=== PATIENT | male | born 1995 | race Caucasian/White ===

== ENCOUNTER → 2017-05-15 | Outpatient (CLI) | payer OTHER ==
[~2017-05-15] MED LIST: LEVO175T PO
== END | disposition home or self-care (01) ==
LOC: C.LAB 01:05
DX: Z02.83 Encounter for blood-alcohol and blood-drug test (principal)

== ENCOUNTER 2017-07-30 10:02 | Emergency (ER) | payer OTHER ==
[~2017-07-30] VITALS: Ht 172.7 cm; Wt 61.2 kg
[2017-07-30 10:12] VITALS: TEMP 36.6; Ht 172.7 cm; Wt 61.2 kg
[2017-07-30] MEDS ORDERED: LEVO175T PO (10:20)
[2017-07-30] MEDS ORDERED: SODIUM CHLORIDE 0.9% 1000ML 1,000 ML IV STA (10:57)
[2017-07-30 11:09] LABS: BASO % 0.2 %; BASO ABS # 0.01 K/uL (0-0.2); COMPLETE YES; EOS % 4.1 %; HEMATOCRIT 45.3 % (42-52); IG% 0.2 %; LYMPH ABS # 2.16 K/uL (1.2-3.4); MEAN CELL VOLUME 83.1 fL (80-100); MEAN CORPUSCULAR HEMOGLOBIN 29.5 pg (25-34); MEAN CORPUSCULAR HGB CONC 35.5 g/dl (32-36); MEAN PLATELET VOLUME 9.9 fL (7.4-10.4); MONO % 7.5 %; PLATELET COUNT 238 K/uL (130-400); RED BLOOD COUNT 5.45 M/uL (4.7-6.1); WHITE BLOOD COUNT 6.36 K/uL (4.8-10.8)
[2017-07-30] MEDS ORDERED: OPTIRAY 320 IV PRN (11:15)
[2017-07-30 11:17] LABS: BUN/CREATININE RATIO 17.3 (10-20); CALCIUM 9.4 mg/dl (8.5-10.1); POTASSIUM 4.1 mmol/L (3.5-5.1)
[2017-07-30 12:52] LABS: URINE APPEARANCE CLEAR (CLEAR); URINE BILIRUBIN NEG (NEG); URINE COLOR YELLOW; URINE NITRITE NEG (NEG); URINE SPECIFIC GRAVITY 1.023 (1.000-1.030); UROBILINOGEN NEG (NEG); ZZUR CULT IF INDIC CLEAN CATCH NO
[2017-07-30 12:58] LABS: MANUAL MICROSCOPIC REQUIRED? NO; REVIEW REQ? NO
--- NOTE | 2017-07-30 13:57 | DIAGNOSTIC IMAGING REPORT ---
CT ABD/PELVIS IV AND ORAL CONT CLINICAL HISTORY: acute abdominal pain COMPARISON STUDY: None. TECHNIQUE: Following the IV administration of 95 mL of Optiray-320, CT scan of the abdomen and pelvis was performed from the lung bases to the proximal femurs. Images are reviewed in the axial, sagittal, and coronal planes. IV contrast was administered without complication. A dose lowering technique was utilized adhering to the principles of ALARA. CT DOSE: 334.35 mGycm FINDINGS: Lower chest: The heart is normal in size and configuration, without pericardial effusion. The lung bases and pleural spaces are clear. Liver: There is minimal periportal edema, likely secondary to aggressive hydration. There are no focal masses identified. Gallbladder: No stones are visualized. There is trace pericholecystic fluid. Spleen: Normal in size and attenuation. Pancreas: Unremarkable. Adrenal glands: Unremarkable. Kidneys: There is symmetric renal cortical enhancement. The kidneys are normal in size without hydronephrosis. Bowel: There are no transition zones indicate bowel obstruction. The appendix appears normal. There is no acute diverticulitis. Peritoneum: There is trace free pelvic fluid. There is no free air. Vasculature: The abdominal aorta is normal in course and caliber. Adenopathy: None. Pelvic viscera: The bladder, and pelvic viscera are unremarkable. Skeletal structures: No destructive osseous lesions are seen. IMPRESSION: 1. No evidence of bowel obstruction. No evidence of free air 2. Normal appendix 3. No evidence of diverticulitis 4. Trace free pelvic fluid 5. Trace pericholecystic fluid Electronically signed by: Bill Bernal M.D. 07/30/2017 1:56 PM Dictated Date/Time: 07/30/2017 1:51 PM
--- NOTE | 2017-07-30 14:03 | EMERGENCY ROOM VISIT NOTE ---
History First contact with patient: 10:28 Chief Complaint: ABDOMINAL PAIN Stated Complaint: SEVERE ABDOMINAL PAIN Nursing Triage Summary: pt reports abdominal pain located in the middle of abdomen started at 0600 and became worse at 0900, denies NVD History of Present Illness The patient is a 21 year old male who presents to the Emergency Room with complaints of periumbilical abdominal pain that started around 6 AM this morning. Patient states the pain is right around his belly button and slightly to the right. The pain has been constant, sharp and crampy, worse with movement , better with rest, currently 3/10, but at its worse has been as bad as 9/10. Patient states that he has never had pain like this before.the patient has not tried any medications for the pain. No associated symptoms of nausea, vomiting , diarrhea, constipation, blood in stool, fevers or chills, back pain, urinary symptoms, or rash. Review of Systems A complete 10 point review of systems was reviewed with the patient with pertinent positives and negatives as per history of present illness. All else were negative. Past Medical/Surgical History No significant past medical or surgical history Social History Smoking Status: Never Smoker Alcohol Use: occasionally Drug Use: none Occupation Status: [employer] student Current/Historical Medications Scheduled Levothyroxine Sodium (Synthroid), 175 MCG PO DAILY Allergies Coded Allergies: Amoxicillin (Unverified Allergy, Intermediate, PLEASE SEE COMMENT, 07/30/17 ) UNKNOWN REACTION. PATIENT SAYS HE HAD A PANEL TEST DONE AND IT WAS CONCLUDED THAT HE IS ALLERGIC TO THIS. Penicillins (Unverified Allergy, Intermediate, PLEASE SEE COMMENT, 07/30/17 ) UNKNOWN REACTION. PATIENT SAYS HE HAD A PANEL TEST DONE AND IT WAS CONCLUDED THAT HE IS ALLERGIC TO THIS. Physical Exam Vital Signs Date Time Temp Pulse Resp B/P (MAP) Pulse Ox O2 Delivery O2 Flow Rate FiO2 07/30/17 14:38 64 16 126/58 98 07/30/17 13:59 85 07/30/17 12:43 75 15 144/71 97 Room Air 07/30/17 11:24 70 15 105/77 100 Room Air 07/30/17 10:32 59 07/30/17 10:12 36.6 69 18 125/84 100 Room Air Physical Exam CONSTITUTIONAL: No acute distress. Mildly dehydrated. Well appearing and well nourished. Alert and oriented X 4 with normal affect. HEENT: Normocephalic, atraumatic. Pupils equal, round and reactive to light, EOMI. TMs normal. Pharynx normal. Tacky mucous membranes. NECK: Supple, full active range of motion without discomfort. RESPIRATORY: Clear to auscultation bilaterally with no wheezing, crackles, rhonchi or stridor. Equal expansion bilaterally. CARDIOVASCULAR: Regular rate and rhythm with no murmurs, rubs or gallops. Normal peripheral perfusion. No edema. GASTROINTESTINAL: Moderate tenderness in the periumbilical area and slightly to the right of midline Soft, nondistended. Bowel sounds present in all quadrants. MUSCULOSKELETAL: Full range of motion of all joints without discomfort. INTEGUMENTARY: No rash or other significant dermatologic conditions noted. NEUROLOGIC: Cranial nerves II-XII grossly intact. No focal neurologic deficits noted. Medical Decision & Procedures ER Provider Diagnostic Interpretation: CT ABD/PELVIS IV AND ORAL CONT CLINICAL HISTORY: acute abdominal pain COMPARISON STUDY: None. TECHNIQUE: Following the IV administration of 95 mL of Optiray-320, CT scan of the abdomen and pelvis was performed from the lung bases to the proximal femurs. Images are reviewed in the axial, sagittal, and coronal planes. IV contrast was administered without complication. A dose lowering technique was utilized adhering to the principles of ALARA. CT DOSE: 334.35 mGycm FINDINGS: Lower chest: The heart is normal in size and configuration, without pericardial effusion. The lung bases and pleural spaces are clear. Liver: There is minimal periportal edema, likely secondary to aggressive hydration. There are no focal masses identified. Gallbladder: No stones are visualized. There is trace pericholecystic fluid. Spleen: Normal in size and attenuation. Pancreas: Unremarkable. Adrenal glands: Unremarkable. Kidneys: There is symmetric renal cortical enhancement. The kidneys are normal in size without hydronephrosis. Bowel: There are no transition zones indicate bowel obstruction. The appendix appears normal. There is no acute diverticulitis. Peritoneum: There is trace free pelvic fluid. There is no free air. Vasculature: The abdominal aorta is normal in course and caliber. Adenopathy: None. Pelvic viscera: The bladder, and pelvic viscera are unremarkable. Skeletal structures: No destructive osseous lesions are seen. IMPRESSION: 1. No evidence of bowel obstruction. No evidence of free air 2. Normal appendix 3. No evidence of diverticulitis 4. Trace free pelvic fluid 5. Trace pericholecystic fluid Laboratory Results 07/30/17 10:25 Red Blood Count 5.45, Mean Corpuscular Volume 83.1, Mean Corpuscular Hemoglobin 29.5, Mean Corpuscular Hemoglobin Concent 35.5, Mean Platelet Volume 9.9, Neutrophils (%) (Auto) 54.0, Lymphocytes (%) (Auto) 34.0, Monocytes (%) (Auto) 7.5, Eosinophils (%) (Auto) 4.1, Basophils (%) (Auto) 0.2, Neutrophils # (Auto) 3.44, Lymphocytes # (Auto) 2.16, Monocytes # (Auto) 0.48, Eosinophils # (Auto) 0.26, Basophils # (Auto) 0.01 07/30/17 10:25 Test 07/30/17 10:25 07/30/17 12:30 White Blood Count 6.36 K/uL (4.8-10.8) Red Blood Count 5.45 M/uL (4.7-6.1) Hemoglobin 16.1 g/dL (14.0-18.0) Hematocrit 45.3 % (42-52) Mean Corpuscular Volume 83.1 fL (80-100) Mean Corpuscular Hemoglobin 29.5 pg (25-34) Mean Corpuscular Hemoglobin Concent 35.5 g/dl (32-36) Platelet Count 238 K/uL (130-400) Mean Platelet Volume 9.9 fL (7.4-10.4) Neutrophils (%) (Auto) 54.0 % Lymphocytes (%) (Auto) 34.0 % Monocytes (%) (Auto) 7.5 % Eosinophils (%) (Auto) 4.1 % Basophils (%) (Auto) 0.2 % Neutrophils # (Auto) 3.44 K/uL (1.4-6.5) Lymphocytes # (Auto) 2.16 K/uL (1.2-3.4) Monocytes # (Auto) 0.48 K/uL (0.11-0.59) Eosinophils # (Auto) 0.26 K/uL (0-0.5) Basophils # (Auto) 0.01 K/uL (0-0.2) RDW Standard Deviation 39.7 fL (36.4-46.3) RDW Coefficient of Variation 13.2 % (11.5-14.5) Immature Granulocyte % (Auto) 0.2 % Immature Granulocyte # (Auto) 0.01 K/uL (0.00-0.02) Anion Gap 6.0 mmol/L (3-11) Est Creatinine Clear Calc Drug Dose 102.9 ml/min Estimated GFR () 125.9 Estimated GFR (Non- 108.6 BUN/Creatinine Ratio 17.3 (10-20) Calcium Level 9.4 mg/dl (8.5-10.1) Total Bilirubin 0.6 mg/dl (0.2-1) Direct Bilirubin 0.1 mg/dl (0-0.2) Aspartate Amino Transf (AST/SGOT) 24 U/L (15-37) Alanine Aminotransferase (ALT/SGPT) 22 U/L (12-78) Alkaline Phosphatase 140 U/L (45-117) Total Protein 7.6 gm/dl (6.4-8.2) Albumin 4.1 gm/dl (3.4-5.0) Lipase 66 U/L (73-393) Urine Color YELLOW Urine Appearance CLEAR (CLEAR) Urine pH 6.0 (4.5-7.5) Urine Specific [place] 1.023 (1.000-1.030) Urine Protein NEG (NEG) Urine Glucose (UA) NEG (NEG) Urine Ketones NEG (NEG) Urine Occult Blood NEG (NEG) Urine Nitrite NEG (NEG) Urine Bilirubin NEG (NEG) Urine Urobilinogen NEG (NEG) Urine Leukocyte Esterase TRACE (NEG) Urine WBC (Auto) 5-10 /hpf (0-5) Urine RBC (Auto) 0-4 /hpf (0-4) Urine Hyaline Casts (Auto) 1-5 /lpf (0-5) Urine Epithelial Cells (Auto) 10-20 /lpf (0-5) Urine Bacteria (Auto) NEG (NEG) Medications Administered Medications (Trade) Dose Ordered Sig/Gigi Route Start Time Stop Time Status Last Admin Dose Admin Sodium Chloride 1,000 ml @ 999 mls/hr Q1H1M STAT IV 07/30/17 10:57 07/30/17 11:57 DC 07/30/17 11:27 999 MLS/HR Medical Decision CC: Patient presenting with complaint of abdominal pain Interpretation of Labs: No leukocytosis, no anemia, renal electrolyte abnormalities, normal renal function, normal liver enzymes and lipase, UA negative. Differential Diagnosis: Includes, but not limited to appendicitis, mesenteric adenitis, gastritis, peptic ulcer disease, gastroenteritis, constipation, gas pain, dehydration mother Medication Reconciliation: I attest that I have personally reviewed the patient' s current medication list. Vital signs review: I reviewed the patient's vital signs and interpret them as follows: T: Afebrile; BP: Normotensive; HR: Within normal limits; RR: Within normal limits; Pulse Ox: Within normal limits on room air. Summary: Patient was evaluated at bedside, history of physical exam performed. Alert and in no acute distress, resting calmly in the stretcher. She has moderate tenderness in the periumbilical region and slightly to the right of midline, concerning for possible early appendicitis. Orders were placed at bedside for labs, UA, IV fluids for hydration, CT abdomen/ pelvis to evaluate for discitis. Patient was offered something for pain which he declines at this time. Patient discussed with Dr. Roy, who agrees with my assessment and plan. Labs reviewed as above, no acute abnormalities. CT imaging reviewed, no evidence of acute appendicitis or other acute intra- abdominal process. Patient reassessed multiple times throughout ED stay, he reports improved pain after receiving IV fluids and urinating. I discussed all results with him and plan for discharge. I specifically discussed return criteria should his symptoms persist or worsen, he verbalized understanding. Patient was discharged home in stable condition ambulatory. Impression Primary Impression: Periumbilical abdominal pain Departure Information Dispostion Home / Self-Care Condition GOOD Referrals [facility] (PCP) Patient Instructions ED Abdominal Pain Unkn Cause Male, My [facility] Additional Instructions You have been treated in the Emergency Department your Abdominal Pain. Laboratory results and imaging studies have ruled out any emergent causes for your abdominal pain which would warrant admission or surgery. For pain control, you can use the following [id number] medicines (if >12 yo): - Regular strength (325mg/tab) Tylenol (acetaminophen) 2 tabs every 4-6 hours as needed. Avoid taking more than 3000 mg of Tylenol per day. This includes any other sources of acetaminophen you may take on a regular basis. - Regular strength (200 mg/tab) Advil (ibuprofen) 2-3 tabs every 6 hours as needed. Do not exceed a dose of 2400 mg per day. Drink plenty of fluids and stay well hydrated. As with any trip to the Emergency Department, you should follow-with your Primary Care Provider from today's visit. Return to the emergency department if your abdominal pain is not any better or is worsening in the next 24-48 hours, if you develop fevers/ or chills, severe nausea/vomiting, blood in your stool or urine, or any other concerns.
[2017-07-30 14:38] VITALS: BP 126/58; PULSE 64; O2SAT 98
== END 2017-07-30 14:39 | disposition home or self-care (01) ==
LOC: C.EDB 10:04
DX: R10.33 Periumbilical pain (principal); Z88.0 Allergy status to penicillin; Z88.1 Allergy status to other antibiotic agents